=== PATIENT | female | born 1985 | race Caucasian/White ===

== ENCOUNTER 2018-02-21 15:32 | Outpatient (REF) | payer OTHER, SELFPAY ==
--- NOTE | 2018-02-21 14:00 | PAPFT_PTH ---
PATIENT: Sarina Payne LOC: [facility] U#:[id number] AGE/SX: 33/F ROOM: RE02/21/[address]: KIMBERLEY Young : 1985 BED: DIS: 02/21/2018 SPEC #: [id number] RECD: 02/21/18 18:00 STATUS: OLMAN CORCORAN #: [id number] JOE: 02/21/18 14:[address]: Honey Villa DEPT: [facility] Cytology RECD BY: Marianne Shepherd Tissues: 1 - CX/ENDOCX FOR PAP SMEARS Procedures: PAP THIN PREP/UVM Screening HPV DNA PROBE Comments: [id number]
== END 2018-02-21 15:52 ==
LOC: LBN 15:32
PROVIDERS: PCP Nurse Practitioner Family; Visit Provider Nurse Practitioner Family
DX: Z12.4 Encounter for screening for malignant neoplasm of cervix (principal); Z11.51 Encounter for screening for human papillomavirus (HPV)
CPT/HCPCS: 88142; 87624

== ENCOUNTER 2019-05-15 02:17 | Outpatient (CLI) | payer OTHER, SELFPAY ==
[2019-05-15 09:59] LABS: Anion Gap 11.6 mmol/L (3-11); BUN 13 mg/dL (7-18); CO2 24.4 mmol/L (21.0-32.0); CREATININE 0.69 mg/dL (0.55-1.02); Calcium 8.6 mg/dL (8.5-10.1); Chloride 105 mmol/L (98-107); Cholesterol 135 mg/dL (<200); Glucose 80 mg/dL (74-106); HDL Cholesterol 50 mg/dL (40-60); Sodium 141 mmol/L (136-145)
[2019-05-15 10:02] LABS: Triglyceride < 25 mg/dL (<150)
[2019-05-15 12:19] LABS: LDL CHOLESTEROL 74 mg/dL (<100)
== END 2019-05-15 02:37 ==
PROVIDERS: PCP Nurse Practitioner Family; Visit Provider Nurse Practitioner Family
DX: Z00.00 Encounter for general adult medical examination without abnormal findings (principal); Z13.220 Encounter for screening for lipoid disorders; Z13.228 Encounter for screening for other metabolic disorders
CPT/HCPCS: 36415; 80048; 80061; 83721

== ENCOUNTER 2019-07-10 10:50 | Outpatient (REF) | payer OTHER, SELFPAY ==
--- NOTE | 2019-07-10 10:15 | PAPFT_PTH ---
PATIENT: Sarina Payne LOC: [facility] U#:[id number] AGE/SX: 34/F ROOM: RE07/10/[address]: KIMBERLEY Young : 1985 BED: DIS: 07/10/2019 SPEC #: [id number] RECD: 07/10/19 12:50 STATUS: DOLORESMariela REQ #: [id number] JOE: 07/10/19 10:[address]: Honey Villa DEPT: [facility] Cytology RECD BY: Marianne Shepherd ENTERED: 07/10/19 12:50 SP TYPE: PAPFT OTHR DR: KIMBERLEY Yang Tissues: 1 - CX/ENDOCX FOR PAP SMEARS Procedures: PAP THIN PREP/UVM Screening HPV DNA PROBE Comments: [id number]
[2019-07-11 14:53] LABS: Chlamydia Result Negative (Negative); GC Result Negative (Negative)
== END 2019-07-10 11:10 ==
LOC: LBN 10:50
PROVIDERS: PCP Nurse Practitioner Family; Visit Provider Nurse Practitioner Family
DX: Z11.3 Encounter for screening for infections with a predominantly sexual mode of transmission (principal); Z12.4 Encounter for screening for malignant neoplasm of cervix; Z11.51 Encounter for screening for human papillomavirus (HPV)
CPT/HCPCS: 87491; 87591; 88142; 87624

== ENCOUNTER 2020-02-19 07:56 | Outpatient (CLI) | payer OTHER, SELFPAY ==
[2020-02-23 20:30] LABS: Patient Race White; SARS-CoV-2 RNA Undetected (Undetected); SARS-CoV-2 Specimen Source Nasal
== END 2020-02-19 08:16 ==
PROVIDERS: PCP Nurse Practitioner Family; Visit Provider Nurse Practitioner Family
DX: Z11.59 Encounter for screening for other viral diseases (principal)
CPT/HCPCS: U0003

== ENCOUNTER 2020-04-09 03:40 | Outpatient (CLI) | payer OTHER, SELFPAY ==
[2020-04-12 12:18] LABS: COVID-19 RT-PCR Result NEGATIVE (Negative)
== END 2020-04-09 04:00 ==
PROVIDERS: PCP Nurse Practitioner Family; Visit Provider Nurse Practitioner Family
DX: Z11.59 Encounter for screening for other viral diseases (principal)
CPT/HCPCS: U0003

== ENCOUNTER 2021-08-26 02:18 | Outpatient (CLI) | payer OTHER, SELFPAY ==
[2021-08-26 12:22] LABS: HCT 40.3 % (36.0-46.0); HGB 13.4 g/dL (11.2-15.7); MCH 31.8 pg (27.0-33.0); MCHC 33.3 % (32.0-36.0); MCV 96 fL (80-95); MPV 11.5 fL (8.0-11.0); Platelet Count 222 10^3/uL (130-400); RBC 4.22 10^6/uL (3.93-5.22); RDW 11.7 % (11.7-14.6); RDW-SD 40.7 fL; WBC 4.64 10^3/uL (4.4-10.8)
[2021-08-26 12:39] LABS: TSH (W/Ref FT4) 1.75 uIU/mL (0.36-3.74)
[2021-08-29 05:25] LABS: Vitamin D 25 Total 21.9 ng/mL (30-100)
== END 2021-08-26 02:19 | disposition home or self-care (01) ==
LOC: LOS 02:18
PROVIDERS: PCP Nurse Practitioner Family; Visit Provider Nurse Practitioner Family
DX: R53.83 Other fatigue (principal); E55.9 Vitamin D deficiency, unspecified
CPT/HCPCS: 36415; 82306; 85027; 84443

== ENCOUNTER 2021-10-04 02:21 | Outpatient (CLI) | payer OTHER, SELFPAY ==
[2021-10-04 13:09] LABS: BUN 15 mg/dL (7-18); CREATININE 0.9 mg/dL (0.55-1.02)
== END 2021-10-04 02:22 | disposition home or self-care (01) ==
LOC: LOS 02:21
PROVIDERS: PCP Nurse Practitioner Family; Visit Provider Nurse Practitioner Family
DX: B00.2 Herpesviral gingivostomatitis and pharyngotonsillitis (principal)
CPT/HCPCS: 36415; 84520; 82565

== ENCOUNTER 2022-01-09 02:32 | Outpatient (CLI) | payer OTHER, SELFPAY ==
--- NOTE | 2022-01-09 08:00 | DI.RAD_ITS ---
Exam(s) XR KNEE LT 3V AP,LAT,LUIS FELIPE EXAM: XR KNEE LT 3V AP,LAT,LUIS FELIPE CLINICAL HISTORY: left knee injury with pain,M25.562.M76.62. TECHNIQUE: 2D digital imaging was performed. Three views. COMPARISON: No exams were available for comparison FINDINGS: BONES: No acute fracture is present. No bony destructive lesion is seen. JOINTS: The knee is normally aligned. No joint effusion is seen. SOFT TISSUE: Normal. IMPRESSION: Normal radiographs of the left knee. DATA REPOSITORY: RADIATION DOSE DELIVERED:
== END 2022-01-09 02:52 ==
LOC: DI 02:32
PROVIDERS: PCP Nurse Practitioner Family; Visit Provider Family Medicine
DX: M25.562 Pain in left knee (principal); M76.62 Achilles tendinitis, left leg
CPT/HCPCS: 73562

== ENCOUNTER 2023-01-29 20:00 | Outpatient (REF) | payer SELFPAY ==
--- NOTE | 2023-01-29 10:45 | PAPFT_PTH ---
PATIENT: Sarina Payne LOC: [facility] U#:[id number] AGE/SX: 38/F ROOM: RE01/29/[address]: Paty Guzman DO : 1985 BED: DIS: 01/29/2023 SPEC #: [id number] RECD: 01/31/23 13:15 STATUS: DOLORESMariela REQ #: [id number] JOE: 01/29/23 10:[address]: Paty Guzman DEPT: [facility] Cytology RECD BY: Marianne Shepherd ENTERED: 01/31/23 13:16 SP TYPE: PAPFT OTHR DR: Kesha Hogan, DENTAL CERAMIST HELPER Tissues: 1 - CX/ENDOCX FOR PAP SMEARS Procedures: PAP THIN PREP/UVM Screening HPV DNA PROBE Comments: [id number]
== END 2023-01-29 20:01 | disposition home or self-care (01) ==
LOC: LBN 20:00
PROVIDERS: PCP Nurse Practitioner Family; Visit Provider Obstetrics & Gynecology
DX: Z12.4 Encounter for screening for malignant neoplasm of cervix (principal); Z11.51 Encounter for screening for human papillomavirus (HPV)
CPT/HCPCS: 88142; 87624

== ENCOUNTER 2023-07-29 10:16 | Emergency (ER) | payer BC, SELFPAY ==
[2023-07-29 10:22] VITALS: BP 145/59; PULSE 80; RESP 16; TEMP 37; O2SAT 99
--- NOTE | 2023-07-29 10:34 | ED.GENADUL_ITS ---
Discharge Plan Disposition Patient Disposition: Home Discharge Details Clinical Impression: UTI (urinary tract infection) Primary Care Provider: Kesha Hogan ED Provider: Ba Parkinson Home Meds and New Rx's Prescriptions: New cephalexin 500 mg capsule 500 mg PO QID 5 Days Qty: 20 0RF No Action garlic 1,000 mg capsule 1,000 mg PO DAILY Mirena 20 mcg/24 hours (5 yrs) 52 mg intrauterine device 1 device Intrauterine ONCE Qty: 1 Rx Instructions: Inserted 02/08/17 turmeric root extract 500 mg capsule 500 mg PO DAILY Patient Comments: Reports 586 mg cholecalciferol (vitamin D3) 25 mcg (1,000 unit) capsule 2,000 unit PO DAILY Adult Probiotic 3 billion cell capsule 3,000 mmu cells PO DAILY albuterol sulfate 90 mcg/actuation HFA aerosol inhaler 2 puff inhalation Q6H PRN (Reason: shortness of breath or wheezing) Qty: 8.5 0RF (DME) Aerochamber MV Spacer See Rx Instructions .Route Qty: 1 0RF Rx Instructions: As directed VITAMIN B COMPLEX 1 EACH tablet 1 tab-cap PO DAILY PRN lysine 500 mg tablet 1,000 mg PO DAILY Patient Comments: 03-22-17 pt reports taking 1000 mg daily. hb hydroxyzine pamoate 50 mg capsule 50 - 100 mg PO QID PRN (Reason: anxiety ) Qty: 180 3RF Rx Instructions: Take 1-2 caps q6hrs as needed for anxiety valacyclovir 1 gram tablet 2,000 mg PO BID PRN (Reason: cold sores) Qty: 30 3RF Rx Instructions: Take 2 tabs twice a day for one day; start at first onset of symptoms Discharge Instructions Instructions: Urinary Tract Infection in Women (ED) Additional Instructions: You were seen in the emergency department for urinary symptoms. We sent your urine for testing and it looks like you have a urinary tract infection. Take the antibiotics prescribed for the full duration even if you start to feel better. We sent the urine for culture and if it grows a bacteria that is not covered by the antibiotic we gave you we will give you a call. Follow-up with your primary care doctor if your symptoms do not improve. If your symptoms worsen please return back to the emergency department. Referrals: Kesha Hogan, KAYLA [Primary Care Provider] - Return if symptoms worsen HPI General Date/Time Provider Initiated Documentation: 07/29/23 10:28 . Limitations to Documentation: no limitations . Information obtained by: patient . HPI Narrative: 38-year-old female presents with dysuria. Started yesterday with painful urination. Urinary urgency and frequency. Has some runny nose and congestion as well as well as subjective chills but no fevers. No nausea or vomiting. No vaginal bleeding or discharge. No abdominal pain or back pain. No diarrhea or constipation or any black or bloody stools. She had a UTI years ago and says this feels similar. Related Data Home Medications Medication Instructions Recorded Confirmed Vitamin B Complex 1 tab-cap PO DAILY PRN 10/07/12 07/29/23 levonorgestrel 21 mcg/24 hours (8 1 device intrauterine ONCE #1 01/26/19 07/29/23 yrs) 52 mg intrauterine device implant (Mirena) lactobacillus combination no.8 3 3,000 mmu cells PO DAILY 06/18/19 07/29/23 billion cell capsule (Adult Probiotic) lysine 500 mg tablet 1,000 mg PO DAILY 07/10/19 07/29/23 garlic 1,000 mg capsule 1,000 mg PO DAILY 10/01/20 07/29/23 turmeric root extract 500 mg 500 mg PO DAILY 10/01/20 07/29/23 capsule cholecalciferol (vitamin D3) 25 2,000 unit PO DAILY 01/06/22 07/29/23 mcg (1,000 unit) capsule hydroxyzine pamoate 50 mg capsule 50 - 100 mg (1 - 2 x 50 mg) PO QID 10/25/22 07/29/23 PRN anxiety #180 caps valacyclovir 1 gram tablet 2,000 mg (2 x 1 gram) PO BID PRN 02/12/23 07/29/23 cold sores #30 tabs albuterol sulfate 90 mcg/actuation 2 puff inhalation Q6H PRN 04/04/23 07/29/23 aerosol inhaler shortness of breath or wheezing #8.5 grams inhalational spacing device #1 ea 04/04/23 04/22/23 (Aerochamber MV spacer) cephalexin 500 mg capsule 500 mg PO QID 5 days #20 caps 07/29/23 Previous Rx's Medication Instructions Recorded hydroxyzine pamoate 50 mg capsule 50 - 100 mg (1 - 2 x 50 mg) PO QID 10/25/22 PRN anxiety #180 caps valacyclovir 1 gram tablet 2,000 mg (2 x 1 gram) PO BID PRN 02/12/23 cold sores #30 tabs albuterol sulfate 90 mcg/actuation 2 puff inhalation Q6H PRN 04/04/23 aerosol inhaler shortness of breath or wheezing #8.5 grams inhalational spacing device #1 ea 04/04/23 (Aerochamber MV spacer) cephalexin 500 mg capsule 500 mg PO QID 5 days #20 caps 07/29/23 Allergies Allergy/AdvReac Type Severity Reaction Status Date / Time Penicillins Allergy Intermediate Rash - Verified 07/29/23 10:20 chest and stomach omeprazole magnesium AdvReac Severe heart Verified 07/29/23 10:20 [From Prilosec] palpatations General Stated Complaint: Urinary ROSLYN: 4 Review of Systems Constitutional Constitutional: Reports chills, Denies fever(s) and Denies headache(s) Eyes Eyes: Denies change in vision ENT Ears, Nose, Mouth, and Throat: Denies headache(s), Reports nasal congestion and Denies odynophagia Cardiovascular Cardiovascular: Denies chest pain and Denies dyspnea Respiratory Respiratory: Denies dyspnea Gastrointestinal Gastrointestinal: Denies abdominal pain, Denies diarrhea, Denies nausea, Denies odynophagia and Denies vomiting Genitourinary Genitourinary: Denies abnormal vaginal bleeding, Denies dysmenorrhea, Reports dysuria, Denies pelvic pain and Reports urinary urgency Musculoskeletal Musculoskeletal: Denies myalgias Integumentary/Breasts Skin/Breast: Denies changing lesions Neurologic Neurologic: Denies behavioral changes and Denies headache(s) Psychiatric Psychiatric: Denies behavioral changes Endocrine Endocrine: Denies heat intolerance Hematologic/Lymphatic Hematologic/Lymphatic: Denies lymphadenopathy Exam Const General: cooperative Nutritional Appearance: average body habitus Orientation: alert, awake and oriented x3 HENMT Head: normal to inspection Ears: external ears normal Mouth: moist mucous membranes Eyes Pupils: PERRL EOM: EOM intact bilaterally and No nystagmus Neck Neck: full ROM and no tracheal deviation Chest Chest: normal inspection of the chest Resp Auscultation: clear to auscultation bilaterally Cardio Rate: regular rate Rhythm: regular rhythm GI Inspection: normal to inspection Palpation: soft, no guarding, not rigid and nontender Back/Spine/Pelvis Back: No no CVA tenderness Thoracic/Lumbar Spine: thoracic and lumbar spine normal to inspection Skin General skin exam: no rashes or lesions noted Neuro General: patient alert, patient awake and patient oriented x3 Cranial Nerves: CN's II-XI intact bilaterally, PERRL and no nystagmus Cognition: normal cognition Motor: muscle tone normal throughout and strength 5/5 throughout Sensory Exam: no sensory deficits noted Extrem General: normal to inspection Course Vital Signs Vital signs: Vital Signs Temperature 37.0 C 07/29/23 10:22 Pulse 80 07/29/23 10:22 Respiratory Rate 16 07/29/23 10:22 Blood Pressure 145/59 H 07/29/23 10:22 Pulse Oximetry 99 07/29/23 10:22 Temperature 37.0 C 07/29/23 10:22 Temperature Source Temporal Artery Scan 07/29/23 10:22 Pulse 80 07/29/23 10:22 Respiratory Rate 16 07/29/23 10:22 Respiratory Effort Normal, Non-Labored 07/29/23 10:25 Blood Pressure 145/59 H 07/29/23 10:22 Blood Pressure Position Sitting 07/29/23 10:22 Pulse Oximetry 99 07/29/23 10:22 Oxygen Delivery Method Room Air 07/29/23 10:22 Oxygen Flow Rate 0 07/29/23 10:22 Pain Level 3 07/29/23 10:22 Comment Azo for urinary pain 07/29/23 10:22 Medical Decision Making 38-year-old female presents with dysuria and frequency. Likely represents UTI. Will send urinalysis to evaluate for this. Will send for culture if it looks unremarkable. No signs of sepsis and otherwise well-appearing with no nausea or vomiting so no role for labs or IV fluids presently. No abdominal tenderness suggest intra-abdominal abscess and no role for advanced imaging. No flank pain to suggest kidney stone. Will await urinalysis and reevaluate. 1051am Urinalysis consistent with UTI. Sent for culture. Will start on antibiotics and discharged with return precautions. Lab Data Lab results reviewed: Yes I reviewed the patient's lab results. Labs: Urine microscopic consistent with UTI and sent for culture Quality:SDRI Health Related Social Needs: No Data to Display [facility] All Active Problems (Updated 07/29/23 @ 10:52 by Ba Parkinson MD) UTI (urinary tract infection) (Acute) Gastritis (Chronic) Acne vulgaris (Chronic) Generalized anxiety disorder (Chronic) Recurrent oral herpes simplex (Chronic) Medical History Binge eating disorder Major depressive disorder Surgical History History of esophagogastroduodenoscopy (EGD) (07/26/15) Family History Mother Essential hypertension Hyperlipidemia Myocardial infarction Heart disease Skin cancer (melanoma) Father Essential hypertension Hyperlipidemia Maternal Grandfather , in his 70s/80s Heart disease Hyperlipidemia Essential hypertension Chronic kidney disease Maternal Grandmother , at 84 of metastatic melanoma TB (tuberculosis) Essential hypertension Skin cancer (melanoma) Lung cancer Paternal Grandfather Essential hypertension Diabetes Heart disease Paternal Grandmother No problems noted. Social History Smoking/Tobacco Use Status: Former Tobacco Use Quit Date: 04/23/11 Tobacco: How many years used: 1 Second Hand Exposure: Yes Smoking risk assessment performed?: Yes Alcohol Intake: current Alcohol Intake frequency: holidays/special occasions only Alcohol type: beer and hard liquor Drug use: Occasionally Substance use type: former substance user and marijuana Caregiver/Support person: No Household members: none Housing: house Do you need help understanding health information?: Rarely current occupation: TEACHER Pets and animals: Yes Pets and animals: cat(s) and dog(s) Sexually active: Yes Do you think of yourself as: bisexual Current gender identity: female How often do you talk on the phone with friends or family?: three or more times per week How often do you get together with friends or relatives?: three or more times per week How often do you attend congregational or rastafarian services?: decline to answer Do you belong to any clubs or organized social groups?: yes Panel score (0-1 are the most socially isolated patients): 2 Duration: < 15 minutes/day Frequency: 1-2 times per week Tereza/Pent[employer]alism: [employer] Special tereza needs: No Seatbelt use: always Helmet use: Yes Helmet use: always Drive intox or ride w/intox water taxi driver: No Do you feel safe at home: Yes Do you feel safe in your relationship?: Yes Female Reproductive History Menstrual control method: progestin IUCD (Mirena IUD inserted 02/08/17) History History 0 Para Hx # Term Pregnancies Multiple births Hx # Pregnancies Ectopic pregnancies AB induced Hx Number of Living Children AB spontaneous
[2023-07-29 10:47] LABS: Clarity Clear (Clear); Specific Gravity 1.005 (1.005-1.025)
[2023-07-29 10:48] LABS: Bilirubin Color Interference (Negative); Blood Color Interference (Negative); Glucose Color Interference mg/dL (Negative); Ketones Color Interference mg/dL (Negative); Leukocyte Esterase Color Interference (Negative); Nitrite Color Interference (Negative); Urobilinogen Color Interference mg/dL (Up to 0.2)
[2023-07-29 10:49] LABS: Bacteria Few HPF (Negative); C & S Indicated? C&S Done As Ordered; Casts Negative LPF (Negative); Crystals Negative HPF (Negative); Epithelial Cells Few HPF (Negative); Mucus Negative (Negative); RBC 0-2 HPF (0-2)
[2023-07-29 11:09] VITALS: BP 117/68; BP 145/59; PULSE 75; PULSE 80; RESP 16; TEMP 37; TEMP 37.1; O2SAT 98; O2SAT 99
== END 2023-07-29 11:12 | disposition home or self-care (01) ==
PROVIDERS: Emergency Provider Student in an Organized Health Care Education/Training Program; PCP Nurse Practitioner Family
DX: N39.0 Urinary tract infection, site not specified (principal); Z87.891 Personal history of nicotine dependence
CPT/HCPCS: 81025; 99283; 81003; 81015; 87086

== ENCOUNTER 2023-08-03 15:00 | Outpatient (REF) | payer BC, SELFPAY | END 2023-08-03 15:01 | disposition home or self-care (01) | LOC: LBN 15:00 | PROVIDERS: PCP Nurse Practitioner Family; Visit Provider Nurse Practitioner Family | DX: R39.15 Urgency of urination (principal) | CPT/HCPCS: 87086 ==

== ENCOUNTER 2024-01-28 02:40 | Outpatient (CLI) | payer BC, SELFPAY ==
[2024-01-28 07:33] LABS: HCT 39.1 % (36.0-46.0); HGB 13.4 g/dL (11.2-15.7); MCH 32.1 pg (27.0-33.0); MCHC 34.3 % (32.0-36.0); MCV 94 fL (80-95); Platelet Count 235 10^3/uL (130-400); RBC 4.18 10^6/uL (3.93-5.22); RDW 11.9 % (11.7-14.6); RDW-SD 41.3 fL; WBC 7.55 10^3/uL (4.4-10.8)
[2024-01-28 07:47] LABS: Hemoglobin A1C 5.3 % (<5.7)
[2024-01-28 08:29] LABS: ALT 23 U/L (14-59); AST 11 U/L (15-37); Albumin 3.6 g/dL (3.4-5.0); Alkaline Phosphatase 61 U/L (46-116); Anion Gap 7.9 mmol/L (3-11); BUN 10 mg/dL (7-18); Bilirubin, Total 0.42 mg/dL (0.2-1.0); CO2 25.1 mmol/L (21.0-32.0); CREATININE 0.7 mg/dL (0.55-1.02); Chloride 107 mmol/L (98-107); Estimated GFR 114.16 (mL/min/1.73m2); Glucose 86 mg/dL (74-106); Magnesium 2.3 mg/dL (1.8-2.4); Potassium 3.8 mmol/L (3.5-5.1); Sodium 140 mmol/L (136-145); TSH (W/Ref FT4) 3.08 uIU/mL (0.36-3.74); Total Protein 7.5 g/dL (6.4-8.2)
[2024-01-28 08:54] LABS: Iron 92 ug/dL (50-170); Total Iron Binding Capacity 251 ug/dL (250-450); Transferrin Sat 37 % (15-50)
[2024-01-28 09:20] LABS: Calculated LDL 88 mg/dL (<100); Cholesterol 153 mg/dL (<200); Ferritin 187 ng/mL (8-252); HDL Cholesterol 52 mg/dL (40-60); Triglyceride 67 mg/dL (<150); Vitamin B12 557 pg/mL (193-986); Vitamin D 25 Total 31.3 ng/mL (30-100)
== END 2024-01-28 02:41 | disposition home or self-care (01) ==
LOC: LBO 02:40
PROVIDERS: PCP Nurse Practitioner Family; Visit Provider Nurse Practitioner Family
DX: R68.89 Other general symptoms and signs (principal); R53.83 Other fatigue; F41.1 Generalized anxiety disorder; B00.2 Herpesviral gingivostomatitis and pharyngotonsillitis; Z00.00 Encounter for general adult medical examination without abnormal findings
CPT/HCPCS: 36415; 80053; 80061; 82306; 85027; 82607; 82728; 83036; 83540; 83550; 83735; 84443

== ENCOUNTER 2024-02-06 03:49 | Outpatient (CLI) | payer BC, SELFPAY ==
[2024-02-08 10:12] LABS: IgA 135 mg/dL (85-499); IgG 1337 mg/dL (610-1616); IgM 128 mg/dL (35-242)
== END 2024-02-06 03:50 | disposition home or self-care (01) ==
LOC: LBO 03:49
PROVIDERS: PCP Nurse Practitioner Family; Visit Provider Nurse Practitioner Family
DX: R68.89 Other general symptoms and signs (principal); A64 Unspecified sexually transmitted disease; Z01.419 Encounter for gynecological examination (general) (routine) without abnormal findings
CPT/HCPCS: 36415; 82784

== ENCOUNTER 2024-02-06 16:13 | Outpatient (REF) | payer BC, SELFPAY ==
[2024-02-08 15:28] LABS: Chlamydia Result Negative (Negative); GC Result Negative (Negative)
== END 2024-02-06 16:14 | disposition home or self-care (01) ==
LOC: LBN 16:13
PROVIDERS: PCP Nurse Practitioner Family; Visit Provider Obstetrics & Gynecology
DX: A64 Unspecified sexually transmitted disease (principal); Z01.419 Encounter for gynecological examination (general) (routine) without abnormal findings
CPT/HCPCS: 87491; 87591

== ENCOUNTER 2024-02-08 22:43 | Outpatient (REF) | payer BC, SELFPAY | END 2024-02-08 22:44 | disposition home or self-care (01) | LOC: LBN 22:43 | PROVIDERS: PCP Nurse Practitioner Family; Visit Provider Physician Assistant | DX: J32.9 Chronic sinusitis, unspecified (principal); J02.9 Acute pharyngitis, unspecified | CPT/HCPCS: 87070 ==

== ENCOUNTER 2025-02-25 03:15 | Outpatient (CLI) | payer BC, SELFPAY ==
[2025-02-25 19:17] LABS: HBs Antibody, Quant >1000.0 mIU/mL (See Note); Hepatitis B Surface Antigen Negative (Negative)
[2025-02-25 19:20] LABS: HIV-1/2 Ag & Ab Screen Negative (Negative)
[2025-02-25 19:21] LABS: Hepatitis C Ab w Rflx HCV PCR Negative (Negative)
== END 2025-02-25 03:16 | disposition home or self-care (01) ==
LOC: LBO 03:15
PROVIDERS: PCP Nurse Practitioner Family; Visit Provider Nurse Practitioner Family
DX: Z11.59 Encounter for screening for other viral diseases (principal); Z11.4 Encounter for screening for human immunodeficiency virus [HIV]
CPT/HCPCS: 36415; 86704; 86706; 86803; 87340; 87389